=== PATIENT | female | born 1935 | race Caucasian/White ===

== ENCOUNTER 2020-02-08 12:27 | Inpatient (IN) ==
[2020-02-09] MEDS: Vancomycin Oral Soln 125 MG/2.5 ML UDC PO SCH ×2 (18:39→21:30)
[2020-02-09] MEDS: Fluticasone Propionate Nasal 50 MCG/SPRAY BOTTLE NS SCH (21:30)
[2020-02-09] MEDS: Lactobacillus 1 EACH CAP.SPRINK PO SCH (21:31)
[2020-02-09] MEDS: tiZANidine 4 MG TABLET PO SCH (21:31)
[2020-02-10 07:58] LABS: Basophils % 0.2 %; Eosinophils # 0.3 K/mcL (0.0-0.6); Eosinophils % 2.6 %; Hematocrit 28.2 % (35.3-44.9); Hemoglobin 8.9 g/dL (11.5-15.4); Immature Granulocytes % 2.6 % (0-4); Lymphocytes # 1.4 K/mcL (0.6-4.6); Lymphocytes % 10.6 %; Mean Corpuscular HGB Conc 31.6 g/dL (31.6-35.5); Mean Corpuscular Hemoglobin 29.4 pg (28.0-33.3); Mean Corpuscular Volume 93.1 fL (83.0-100.0); Mean Platelet Volume 9.8 fL (9.4-12.4); Monocytes # 0.8 K/mcL (0.0-1.3); Monocytes % 6.2 %; Platelet Count 216 K/mcL (140-400); Red Blood Count 3.03 M/mcL (3.82-4.97); Red Cell Distribution Width 14.6 % (11.5-14.5); Segmented Neutrophils % 77.8 %; White Blood Count 12.9 K/mcL (4.3-11.1)
[2020-02-10 08:14] LABS: BUN/Creatinine Ratio 19 (6-26); Blood Urea Nitrogen 17 mg/dL (8-23); Calcium 8.5 mg/dL (8.6-10.3); Carbon Dioxide 32 mEq/L (23-29); Chloride 101 mEq/L (98-107); Glucose 104 mg/dL (70-105); Osmolality,Calculated 290 (280-300); Potassium 4.8 mEq/L (3.5-5.1); Sodium 139 mEq/L (136-145); eGFR For African Americans > 60 (> 60); eGFR For Non-African Americans > 60 (> 60)
[2020-02-10] MEDS: tiZANidine 4 MG TABLET PO SCH ×2 (10:45→20:23)
[2020-02-10] MEDS: Aspirin Enteric Coated 81 MG Tablet PO SCH (10:45)
[2020-02-10] MEDS: Lactobacillus 1 EACH CAP.SPRINK PO SCH ×2 (10:45→20:23)
[2020-02-10] MEDS: Isosorbide MONOnitrate (24 HR) 60 MG TAB.ER.24H PO SCH (10:46)
[2020-02-10] MEDS: lisinopriL 20 MG TABLET PO SCH (10:46)
[2020-02-10] MEDS: hydroCHLOROthiazide 25 MG TABLET PO SCH (10:46)
[2020-02-10] MEDS: Cyanocobalamin (B-12) 1,000 MCG TABLET PO SCH (10:46)
[2020-02-10] MEDS: Cholecalciferol (D-3) 1,000 UNIT (25MCG) TABLET PO SCH (10:46)
[2020-02-10] MEDS: Vancomycin Oral Soln 125 MG/2.5 ML UDC PO SCH ×4 (10:47→20:23)
[2020-02-10] MEDS: Fluticasone Propionate Nasal 50 MCG/SPRAY BOTTLE NS SCH (20:24)
[2020-02-11] MEDS: Cholecalciferol (D-3) 1,000 UNIT (25MCG) TABLET PO SCH (09:31)
[2020-02-11] MEDS: lisinopriL 20 MG TABLET PO SCH (09:31)
[2020-02-11] MEDS: tiZANidine 4 MG TABLET PO SCH ×2 (09:31→19:46)
[2020-02-11] MEDS: Cyanocobalamin (B-12) 1,000 MCG TABLET PO SCH (09:32)
[2020-02-11] MEDS: Vancomycin Oral Soln 125 MG/2.5 ML UDC PO SCH ×4 (09:32→19:46)
[2020-02-11] MEDS: Aspirin Enteric Coated 81 MG Tablet PO SCH (09:32)
[2020-02-11] MEDS: hydroCHLOROthiazide 25 MG TABLET PO SCH (09:32)
[2020-02-11] MEDS: Lactobacillus 1 EACH CAP.SPRINK PO SCH ×2 (09:32→19:46)
[2020-02-11] MEDS: Isosorbide MONOnitrate (24 HR) 60 MG TAB.ER.24H PO SCH (09:33)
[2020-02-11] MEDS: Fluticasone Propionate Nasal 50 MCG/SPRAY BOTTLE NS SCH (19:48)
[2020-02-12] MEDS: Vancomycin Oral Soln 125 MG/2.5 ML UDC PO SCH ×4 (09:20→20:21)
[2020-02-12] MEDS: Lactobacillus 1 EACH CAP.SPRINK PO SCH ×2 (09:21→20:21)
[2020-02-12] MEDS: Aspirin Enteric Coated 81 MG Tablet PO SCH (09:21)
[2020-02-12] MEDS: hydroCHLOROthiazide 25 MG TABLET PO SCH (09:21)
[2020-02-12] MEDS: Cyanocobalamin (B-12) 1,000 MCG TABLET PO SCH (09:22)
[2020-02-12] MEDS: Isosorbide MONOnitrate (24 HR) 60 MG TAB.ER.24H PO SCH (09:22)
[2020-02-12] MEDS: lisinopriL 20 MG TABLET PO SCH (09:22)
[2020-02-12] MEDS: tiZANidine 4 MG TABLET PO SCH ×2 (09:22→20:21)
[2020-02-12] MEDS: Cholecalciferol (D-3) 1,000 UNIT (25MCG) TABLET PO SCH (09:22)
[2020-02-12] MEDS: Nystatin Cream 15 GM TUBE TP SCH ×3 (11:05→20:21)
[2020-02-12] MEDS: Fluticasone Propionate Nasal 50 MCG/SPRAY BOTTLE NS SCH (20:20)
[2020-02-12] MEDS: Melatonin 3 MG TABLET PO PRN (21:51)
[2020-02-13 06:43] LABS: Hematocrit 24.1 % (35.3-44.9); Hemoglobin 7.7 g/dL (11.5-15.4); Mean Corpuscular Hemoglobin 29.4 pg (28.0-33.3); Mean Platelet Volume 9.7 fL (9.4-12.4); Platelet Count 202 K/mcL (140-400); Red Blood Count 2.62 M/mcL (3.82-4.97); Red Cell Distribution Width 14.3 % (11.5-14.5); White Blood Count 8.8 K/mcL (4.3-11.1)
[2020-02-13 07:04] LABS: BUN/Creatinine Ratio 19 (6-26); Blood Urea Nitrogen 15 mg/dL (8-23); Calcium 8.6 mg/dL (8.6-10.3); Carbon Dioxide 32 mEq/L (23-29); Chloride 100 mEq/L (98-107); Glucose 96 mg/dL (70-105); Magnesium 1.3 mg/dL (1.6-2.6); Osmolality,Calculated 289 (280-300); Potassium 3.9 mEq/L (3.5-5.1); Sodium 139 mEq/L (136-145); eGFR For African Americans > 60 (> 60); eGFR For Non-African Americans > 60 (> 60)
[2020-02-13] MEDS ORDERED: 0.9 % Sodium Chloride 250 ML IVC SCH (09:15)
[2020-02-13] MEDS: Vancomycin Oral Soln 125 MG/2.5 ML UDC PO SCH ×4 (09:25→21:21)
[2020-02-13] MEDS: tiZANidine 4 MG TABLET PO SCH ×2 (09:26→21:21)
[2020-02-13] MEDS: Cyanocobalamin (B-12) 1,000 MCG TABLET PO SCH (09:26)
[2020-02-13] MEDS: Isosorbide MONOnitrate (24 HR) 60 MG TAB.ER.24H PO SCH (09:26)
[2020-02-13] MEDS: Aspirin Enteric Coated 81 MG Tablet PO SCH (09:26)
[2020-02-13] MEDS: Nystatin Cream 15 GM TUBE TP SCH ×3 (09:26→21:21)
[2020-02-13] MEDS: Cholecalciferol (D-3) 1,000 UNIT (25MCG) TABLET PO SCH (09:26)
[2020-02-13] MEDS: lisinopriL 20 MG TABLET PO SCH (09:26)
[2020-02-13] MEDS: Lactobacillus 1 EACH CAP.SPRINK PO SCH ×2 (09:26→21:21)
[2020-02-13] MEDS: Fluticasone Propionate Nasal 50 MCG/SPRAY BOTTLE NS SCH (21:21)
[2020-02-13] MEDS: Melatonin 3 MG TABLET PO PRN (21:21)
[2020-02-14 06:30] LABS: Basophils % 0.3 %; Eosinophils # 0.3 K/mcL (0.0-0.6); Eosinophils % 3.4 %; Hematocrit 27.2 % (35.3-44.9); Hemoglobin 8.7 g/dL (11.5-15.4); Immature Granulocytes % 0.4 % (0-4); Lymphocytes # 1.1 K/mcL (0.6-4.6); Mean Corpuscular Hemoglobin 28.9 pg (28.0-33.3); Mean Corpuscular Volume 90.4 fL (83.0-100.0); Mean Platelet Volume 9.6 fL (9.4-12.4); Monocytes # 0.7 K/mcL (0.0-1.3); Monocytes % 9.3 %; Neutrophils # 5.7 K/mcL (1.6-8.9); Platelet Count 202 K/mcL (140-400); Red Blood Count 3.01 M/mcL (3.82-4.97); Red Cell Distribution Width 14.2 % (11.5-14.5); Segmented Neutrophils % 72.6 %; White Blood Count 7.8 K/mcL (4.3-11.1)
[2020-02-14 08:51] LABS: Alanine Aminotransferase 16 Units/L (7-52); Albumin 2.8 g/dL (3.5-5.7); Alkaline Phosphatase 65 Units/L (34-104); Aspartate Amino Transferase 23 Units/L (13-39); BUN/Creatinine Ratio 19 (6-26); Bilirubin,Total 1.6 mg/dL (0.3-1.0); Blood Urea Nitrogen 15 mg/dL (8-23); Calcium 8.7 mg/dL (8.6-10.3); Carbon Dioxide 32 mEq/L (23-29); Chloride 100 mEq/L (98-107); Globulin 2.7 g/dL (2.4-3.5); Glucose 93 mg/dL (70-105); Magnesium 1.7 mg/dL (1.6-2.6); Osmolality,Calculated 289 (280-300); Potassium 4.3 mEq/L (3.5-5.1); Sodium 139 mEq/L (136-145); Total Protein 5.5 g/dL (6.4-8.9); eGFR For African Americans > 60 (> 60); eGFR For Non-African Americans > 60 (> 60)
[2020-02-14] MEDS: Aspirin Enteric Coated 81 MG Tablet PO SCH (09:02)
[2020-02-14] MEDS: Vancomycin Oral Soln 125 MG/2.5 ML UDC PO SCH ×3 (09:02→17:00)
[2020-02-14] MEDS: Cholecalciferol (D-3) 1,000 UNIT (25MCG) TABLET PO SCH (09:02)
[2020-02-14] MEDS: Isosorbide MONOnitrate (24 HR) 60 MG TAB.ER.24H PO SCH (09:02)
[2020-02-14] MEDS: tiZANidine 4 MG TABLET PO SCH ×2 (09:02→21:58)
[2020-02-14] MEDS: lisinopriL 20 MG TABLET PO SCH (09:02)
[2020-02-14] MEDS: Cyanocobalamin (B-12) 1,000 MCG TABLET PO SCH (09:03)
[2020-02-14] MEDS: Lactobacillus 1 EACH CAP.SPRINK PO SCH ×2 (09:03→21:58)
[2020-02-14] MEDS: Nystatin Cream 15 GM TUBE TP SCH ×3 (09:03→22:17)
[2020-02-14] MEDS ORDERED: Acetaminophen 325 MG TABLET PO PRN (18:10)
[2020-02-14] MEDS: Melatonin 3 MG TABLET PO PRN (21:58)
[2020-02-14] MEDS: Fluticasone Propionate Nasal 50 MCG/SPRAY BOTTLE NS SCH (22:00)
[2020-02-15] MEDS: Cyanocobalamin (B-12) 1,000 MCG TABLET PO SCH (09:49)
[2020-02-15] MEDS: tiZANidine 4 MG TABLET PO SCH ×4 (09:50→21:34)
[2020-02-15] MEDS: lisinopriL 20 MG TABLET PO SCH (10:21)
[2020-02-15] MEDS: Aspirin Enteric Coated 81 MG Tablet PO SCH (10:21)
[2020-02-15] MEDS: Isosorbide MONOnitrate (24 HR) 60 MG TAB.ER.24H PO SCH (10:21)
[2020-02-15] MEDS: Cholecalciferol (D-3) 1,000 UNIT (25MCG) TABLET PO SCH (10:21)
[2020-02-15] MEDS: Lactobacillus 1 EACH CAP.SPRINK PO SCH ×2 (10:21→21:34)
[2020-02-15] MEDS: Nystatin Cream 15 GM TUBE TP SCH ×3 (10:22→21:36)
[2020-02-15] MEDS: Vancomycin Oral Soln 125 MG/2.5 ML UDC PO SCH ×4 (10:22→21:35)
[2020-02-15] MEDS: Fluticasone Propionate Nasal 50 MCG/SPRAY BOTTLE NS SCH (21:34)
[2020-02-15] MEDS: Melatonin 3 MG TABLET PO PRN (21:43)
[2020-02-16 00:42] LABS: Bilirubin,Urine Negative (Negative); Blood,Urine Large (Negative); Clarity,Urine Cloudy (Clear); Color,Urine Dark Yellow (Yellow); Glucose,Urine (UA) Normal (Normal); Ketones,Urine Negative (Negative); Leukocyte Esterase,Urine Moderate (Negative); Nitrite,Urine Negative (Negative); PH,Urine 7.5 pH Units (5.0-8.0); Protein,Urine >=300 mg/dL (Neg-Trace); Specific Gravity,Urine 1.025 (1.010-1.025); Urobilinogen,Urine Normal (Normal)
[2020-02-16 00:47] LABS: Bacteria,Urine Few per hpf (None-Few); RBC,Urine 50-100 per hpf (0-3); Squamous Epithelial Cell,Urine Moderate per hpf (None-Few)
[2020-02-16] MEDS: Aspirin Enteric Coated 81 MG Tablet PO SCH (09:08)
[2020-02-16] MEDS: Lactobacillus 1 EACH CAP.SPRINK PO SCH ×2 (09:08→19:40)
[2020-02-16] MEDS: Vancomycin Oral Soln 125 MG/2.5 ML UDC PO SCH ×4 (09:08→19:41)
[2020-02-16] MEDS: Isosorbide MONOnitrate (24 HR) 60 MG TAB.ER.24H PO SCH (09:08)
[2020-02-16] MEDS: tiZANidine 4 MG TABLET PO SCH ×3 (09:08→19:41)
[2020-02-16] MEDS: Cholecalciferol (D-3) 1,000 UNIT (25MCG) TABLET PO SCH (09:08)
[2020-02-16] MEDS: lisinopriL 20 MG TABLET PO SCH (09:09)
[2020-02-16] MEDS: Nystatin Cream 15 GM TUBE TP SCH ×3 (09:09→19:42)
[2020-02-16] MEDS: Fluticasone Propionate Nasal 50 MCG/SPRAY BOTTLE NS SCH (19:41)
[2020-02-16] MEDS: Melatonin 3 MG TABLET PO PRN (22:04)
[2020-02-17] MEDS: Lactobacillus 1 EACH CAP.SPRINK PO SCH ×2 (09:08→20:14)
[2020-02-17] MEDS: tiZANidine 4 MG TABLET PO SCH ×3 (09:08→20:15)
[2020-02-17] MEDS: lisinopriL 20 MG TABLET PO SCH (09:09)
[2020-02-17] MEDS: Vancomycin Oral Soln 125 MG/2.5 ML UDC PO SCH ×4 (09:09→20:15)
[2020-02-17] MEDS: Cholecalciferol (D-3) 1,000 UNIT (25MCG) TABLET PO SCH (09:09)
[2020-02-17] MEDS: Isosorbide MONOnitrate (24 HR) 60 MG TAB.ER.24H PO SCH (09:09)
[2020-02-17] MEDS: Aspirin Enteric Coated 81 MG Tablet PO SCH (09:09)
[2020-02-17] MEDS: Nystatin Cream 15 GM TUBE TP SCH ×3 (09:10→20:16)
[2020-02-17] MEDS: Fluticasone Propionate Nasal 50 MCG/SPRAY BOTTLE NS SCH (20:22)
[2020-02-18] MEDS: Melatonin 3 MG TABLET PO PRN ×2 (00:54→22:45)
[2020-02-18] MEDS: Vancomycin Oral Soln 125 MG/2.5 ML UDC PO SCH ×4 (08:08→20:01)
[2020-02-18] MEDS: tiZANidine 4 MG TABLET PO SCH ×3 (08:08→22:45)
[2020-02-18] MEDS: Lactobacillus 1 EACH CAP.SPRINK PO SCH ×2 (08:09→20:00)
[2020-02-18] MEDS: Isosorbide MONOnitrate (24 HR) 60 MG TAB.ER.24H PO SCH (08:09)
[2020-02-18] MEDS: Cholecalciferol (D-3) 1,000 UNIT (25MCG) TABLET PO SCH (08:09)
[2020-02-18] MEDS: lisinopriL 20 MG TABLET PO SCH (08:10)
[2020-02-18] MEDS: Aspirin Enteric Coated 81 MG Tablet PO SCH (08:10)
[2020-02-18] MEDS: Nystatin Cream 15 GM TUBE TP SCH ×3 (08:13→20:01)
[2020-02-18 08:47] LABS: Hematocrit 28.1 % (35.3-44.9); Mean Corpuscular Hemoglobin 29.2 pg (28.0-33.3); Mean Corpuscular Volume 91.2 fL (83.0-100.0); Mean Platelet Volume 9.8 fL (9.4-12.4); Platelet Count 156 K/mcL (140-400); Red Blood Count 3.08 M/mcL (3.82-4.97); Red Cell Distribution Width 13.9 % (11.5-14.5); White Blood Count 6.2 K/mcL (4.3-11.1)
[2020-02-18 09:02] LABS: BUN/Creatinine Ratio 23 (6-26); Blood Urea Nitrogen 23 mg/dL (8-23); Calcium 9.2 mg/dL (8.6-10.3); Carbon Dioxide 33 mEq/L (23-29); Chloride 101 mEq/L (98-107); Glucose 90 mg/dL (70-105); Osmolality,Calculated 289 (280-300); Potassium 4.9 mEq/L (3.5-5.1); Sodium 138 mEq/L (136-145); eGFR For African Americans > 60 (> 60); eGFR For Non-African Americans 54 (> 60)
[2020-02-18] MEDS: Fluticasone Propionate Nasal 50 MCG/SPRAY BOTTLE NS SCH (20:08)
[2020-02-19] MEDS: Aspirin Enteric Coated 81 MG Tablet PO SCH (08:30)
[2020-02-19] MEDS: Cholecalciferol (D-3) 1,000 UNIT (25MCG) TABLET PO SCH (08:30)
[2020-02-19] MEDS: Lactobacillus 1 EACH CAP.SPRINK PO SCH ×2 (08:30→20:27)
[2020-02-19] MEDS: tiZANidine 4 MG TABLET PO SCH ×3 (08:31→22:45)
[2020-02-19] MEDS: lisinopriL 20 MG TABLET PO SCH (08:31)
[2020-02-19] MEDS: Isosorbide MONOnitrate (24 HR) 60 MG TAB.ER.24H PO SCH (08:31)
[2020-02-19] MEDS: Nystatin Cream 15 GM TUBE TP SCH ×3 (08:32→20:29)
[2020-02-19] MEDS: Vancomycin Oral Soln 125 MG/2.5 ML UDC PO SCH ×4 (08:32→20:28)
[2020-02-19] MEDS: Fluticasone Propionate Nasal 50 MCG/SPRAY BOTTLE NS SCH (20:28)
[2020-02-19] MEDS: Melatonin 3 MG TABLET PO PRN (22:45)
[2020-02-20] MEDS ORDERED: Ondansetron ODT 4 MG TAB.RAPDIS SL PRN (09:43)
[2020-02-20] MEDS: Vancomycin Oral Soln 125 MG/2.5 ML UDC PO SCH ×4 (09:57→21:50)
[2020-02-20] MEDS: Cholecalciferol (D-3) 1,000 UNIT (25MCG) TABLET PO SCH (09:57)
[2020-02-20] MEDS: Lactobacillus 1 EACH CAP.SPRINK PO SCH ×2 (09:57→21:50)
[2020-02-20] MEDS: lisinopriL 20 MG TABLET PO SCH (09:57)
[2020-02-20] MEDS: tiZANidine 4 MG TABLET PO SCH ×3 (09:58→22:30)
[2020-02-20] MEDS: Isosorbide MONOnitrate (24 HR) 60 MG TAB.ER.24H PO SCH (09:58)
[2020-02-20] MEDS: Aspirin Enteric Coated 81 MG Tablet PO SCH (09:58)
[2020-02-20] MEDS: Nystatin Cream 15 GM TUBE TP SCH ×3 (09:58→21:51)
[2020-02-20] MEDS: Fluticasone Propionate Nasal 50 MCG/SPRAY BOTTLE NS SCH (21:55)
[2020-02-21] MEDS: Melatonin 3 MG TABLET PO PRN ×2 (00:23→20:34)
[2020-02-21] MEDS: tiZANidine 4 MG TABLET PO SCH ×4 (00:23→20:34)
[2020-02-21] MEDS: Lactobacillus 1 EACH CAP.SPRINK PO SCH ×2 (08:06→20:34)
[2020-02-21] MEDS: Nystatin Cream 15 GM TUBE TP SCH ×3 (08:06→20:35)
[2020-02-21] MEDS: Isosorbide MONOnitrate (24 HR) 60 MG TAB.ER.24H PO SCH (08:06)
[2020-02-21] MEDS: Aspirin Enteric Coated 81 MG Tablet PO SCH (08:07)
[2020-02-21] MEDS: Cholecalciferol (D-3) 1,000 UNIT (25MCG) TABLET PO SCH (08:07)
[2020-02-21] MEDS: lisinopriL 20 MG TABLET PO SCH (08:07)
[2020-02-21] MEDS: Fluticasone Propionate Nasal 50 MCG/SPRAY BOTTLE NS SCH (20:40)
[2020-02-22 06:35] LABS: Basophils % 0.4 %; Eosinophils # 0.6 K/mcL (0.0-0.6); Eosinophils % 11.7 %; Hematocrit 26.5 % (35.3-44.9); Hemoglobin 8.6 g/dL (11.5-15.4); Immature Granulocytes % 0.6 % (0-4); Lymphocytes # 1.2 K/mcL (0.6-4.6); Lymphocytes % 24.1 %; Mean Corpuscular HGB Conc 32.5 g/dL (31.6-35.5); Mean Corpuscular Hemoglobin 29.6 pg (28.0-33.3); Mean Corpuscular Volume 91.1 fL (83.0-100.0); Monocytes # 0.5 K/mcL (0.0-1.3); Monocytes % 10.1 %; Neutrophils # 2.6 K/mcL (1.6-8.9); Platelet Count 183 K/mcL (140-400); Red Blood Count 2.91 M/mcL (3.82-4.97); Red Cell Distribution Width 13.6 % (11.5-14.5); Segmented Neutrophils % 53.1 %; White Blood Count 4.9 K/mcL (4.3-11.1)
[2020-02-22 06:51] LABS: Potassium 4.2 mEq/L (3.5-5.1)
[2020-02-22] MEDS: Aspirin Enteric Coated 81 MG Tablet PO SCH (08:04)
[2020-02-22] MEDS: tiZANidine 4 MG TABLET PO SCH ×3 (08:04→22:29)
[2020-02-22] MEDS: Cholecalciferol (D-3) 1,000 UNIT (25MCG) TABLET PO SCH (08:04)
[2020-02-22] MEDS: Isosorbide MONOnitrate (24 HR) 60 MG TAB.ER.24H PO SCH (08:04)
[2020-02-22] MEDS: Lactobacillus 1 EACH CAP.SPRINK PO SCH ×2 (08:04→20:05)
[2020-02-22] MEDS: Nystatin Cream 15 GM TUBE TP SCH ×3 (08:04→20:06)
[2020-02-22] MEDS: lisinopriL 20 MG TABLET PO SCH (08:04)
[2020-02-22] MEDS: Fluticasone Propionate Nasal 50 MCG/SPRAY BOTTLE NS SCH (20:08)
[2020-02-22] MEDS: Melatonin 3 MG TABLET PO PRN (22:29)
[2020-02-23 06:58] VITALS: BP 136/64
[2020-02-23] MEDS: Lactobacillus 1 EACH CAP.SPRINK PO SCH (08:44)
[2020-02-23] MEDS: tiZANidine 4 MG TABLET PO SCH (08:44)
[2020-02-23] MEDS: Cholecalciferol (D-3) 1,000 UNIT (25MCG) TABLET PO SCH (08:44)
[2020-02-23] MEDS: Isosorbide MONOnitrate (24 HR) 60 MG TAB.ER.24H PO SCH (08:45)
[2020-02-23] MEDS: lisinopriL 20 MG TABLET PO SCH (08:45)
[2020-02-23] MEDS: Aspirin Enteric Coated 81 MG Tablet PO SCH (08:45)
[2020-02-23] MEDS: Nystatin Cream 15 GM TUBE TP SCH (08:45)
[2020-02-23 09:49] LABS: Calcium 9.1 mg/dL (8.6-10.3); Potassium 3.9 mEq/L (3.5-5.1)
== END 2020-02-23 11:35 | disposition home health service (06) | DRG 177 ==
LOC: SUATTDRO 02-09 14:40 → INPPIK 02-09 14:40
PROVIDERS: ADMIT Internal Medicine; ATTEND Family Medicine